=== PATIENT | male | born 1970 | race Caucasian/White ===

== ENCOUNTER → 2021-10-21 | Outpatient (CLI) | payer OTHER ==
[2021-10-21 08:20] LABS: BASO # 0.1 10^3/uL (0.0-0.2); BASO % 0.9 % (0.0-1.0); EOS # 0.3 10^3/uL (0.0-0.5); EOS % 3.8 % (0.0-3.0); HEMATOCRIT 41.5 % (42.0-52.0); HEMOGLOBIN 15.1 g/dl (13.5-17.5); LYMPH # 3.3 10^3/uL (1.5-5.0); LYMPH % 49.5 % (24.0-44.0); MEAN CORPUSCULAR HGB CONC 36.4 g/dl (32.0-36.5); MEAN CORPUSCULAR VOLUME 90.6 fl (80.0-96.0); MONO # 0.6 10^3/uL (0.0-0.8); MONO % 8.9 % (2.0-8.0); NEUTROPHILS # 2.4 10^3/uL (1.5-8.5); NEUTROPHILS % 36.3 % (36.0-66.0); PLATELET COUNT, AUTOMATED 242 10^3/uL (150-450); RED BLOOD COUNT 4.58 10^6/uL (4.30-6.10); WHITE BLOOD COUNT 6.6 10^3/uL (4.0-10.0)
[2021-10-21 09:42] LABS: ALBUMIN 3.9 GM/DL (3.2-5.2); BLOOD UREA NITROGEN 20 MG/DL (7-18); CALCIUM LEVEL 8.7 MG/DL (8.5-10.1); CARBON DIOXIDE LEVEL 24 MEQ/L (21-32); CHLORIDE LEVEL 109 MEQ/L (98-107); CHOLESTEROL LEVEL 142 MG/DL (<200); CHOLESTEROL RISK RATIO 3.021 (<5); CREATININE FOR GFR 1.21 MG/DL (0.70-1.30); GLOMERULAR FILTRATION RATE > 60.0 (>56); GLUCOSE, FASTING 83 MG/DL (70-100); HDL CHOLESTEROL 47 MG/DL (>40); LDL CHOLESTEROL 63 MG/DL (<100); NON-HDL-C 95 MG/DL; PHOSPHORUS LEVEL 3.3 MG/DL (2.5-4.9); SODIUM LEVEL 139 MEQ/L (136-145); TRIGLYCERIDES LEVEL 160 MG/DL (<150)
[2021-10-21 11:14] LABS: HEPATITIS B SURFACE ANTIGEN NEGATIVE (NEGATIVE)
[2021-10-21 11:40] LABS: HEPATITIS C VIRUS ABY INDEX 0.2 INDEX (<0.8)
[2021-10-21 11:41] LABS: HEPATITIS B CORE ANTIBODY IGM NEGATIVE (NEGATIVE)
[2021-10-22 18:10] LABS: PSA TOTAL 0.5 ng/mL (0.0-4.0)
== END ==
LOC: M LAB 07:38
PROVIDERS: ATTEND Physician Assistant
DX: Z02.2 Encounter for examination for admission to residential institution (principal); R06.02 Shortness of breath; I10 Essential (primary) hypertension; E78.2 Mixed hyperlipidemia; Z12.5 Encounter for screening for malignant neoplasm of prostate

== ENCOUNTER 2021-11-03 07:42 | Emergency (ER) | payer OTHER ==
[~2021-11-03] VITALS: Ht 182.9 cm; Wt 115.8 kg
[2021-11-03] MEDS ORDERED: KEPP10002 PO (08:00)
[2021-11-03] MEDS ORDERED: ELIQ5TAB PO (08:00)
[2021-11-03] MEDS ORDERED: PANT40TA29 PO (08:00)
[2021-11-03] MEDS ORDERED: ZONE25CA6 PO (08:00)
[2021-11-03] MEDS ORDERED: MELA10CA6 PO (08:00)
[2021-11-03] MEDS ORDERED: SIMV40TA20 PO (08:00)
[2021-11-03] MEDS ORDERED: BENA25CA4 PO (08:00)
[2021-11-03] MEDS ORDERED: IBUP200C25 PO (08:00)
[2021-11-03] MEDS ORDERED: ALBUTEROL 90 MCG/ACT 8GM HFA INHALER INH ONE (08:45)
[2021-11-03] MEDS ORDERED: ISOVUE-370 76% 100ML VIAL As Ordered ONE ×2 (09:18→09:19)
[2021-11-03] MEDS ORDERED: DOXY-443 PO (12:51)
[2021-11-03] MEDS ORDERED: ALBU8.5H INH (12:51)
[2021-11-03] MEDS ORDERED: ENOX40IN3 SC (12:51)
[2021-11-03 13:40] VITALS: BP 151/73
== END 2021-11-03 13:40 | disposition home or self-care (01) ==
LOC: M ED 07:42
DX: J18.9 Pneumonia, unspecified organism (principal); J12.3 Human metapneumovirus pneumonia; I26.99 Other pulmonary embolism without acute cor pulmonale; Z91.030 Bee allergy status; Z79.899 Other long term (current) drug therapy
CPT/HCPCS: 36415; 71275; 80047; 87798; 94640; 99284; Q9967

== ENCOUNTER → 2021-11-17 | Outpatient (CLI) | payer OTHER ==
[~2021-11-17] MED LIST: ALBU8.5H INH; BENA25CA4 PO; DOXY-443 PO; E-Z-GAS II EFFERVESCENT PACKET (SODIUM BICARB./CITRIC ACID/SIMETHICONE) As Ordered ONE; E-Z-HD 98% w/w 340GM SUSP BTL As Ordered ONE; E-Z-PAQUE 96% w/w SUSP 176GM BTL As Ordered ONE; ELIQ5TAB PO; ENOX40IN3 SC; IBUP200C25 PO; KEPP10002 PO; MELA10CA6 PO; PANT40TA29 PO; SIMV40TA20 PO; ZONE25CA6 PO
== END ==
LOC: M RAD 09:03
PROVIDERS: ATTEND Internal Medicine Gastroenterology
DX: K21.9 Gastro-esophageal reflux disease without esophagitis (principal); R06.00 Dyspnea, unspecified; R10.13 Epigastric pain

== ENCOUNTER → 2021-11-22 | Outpatient (CLI) | payer OTHER ==
[~2021-11-22] MED LIST changes: +COMBAER6 INH; -E-Z-GAS II EFFERVESCENT PACKET (SODIUM BICARB./CITRIC ACID/SIMETHICONE) As Ordered ONE; -E-Z-HD 98% w/w 340GM SUSP BTL As Ordered ONE; -E-Z-PAQUE 96% w/w SUSP 176GM BTL As Ordered ONE
== END ==
LOC: M LABSMTC 11:06
PROVIDERS: ATTEND Anesthesiology
DX: Z20.828 Contact with and (suspected) exposure to other viral communicable diseases (principal); Z11.59 Encounter for screening for other viral diseases

== ENCOUNTER → 2021-11-23 | Outpatient (CLI) | payer OTHER | LOC: M SLEEP 08:24 | PROVIDERS: ATTEND Psychiatry & Neurology Neurology | DX: G40.109 Localization-related (focal) (partial) symptomatic epilepsy and epileptic syndromes with simple partial seizures, not intractable, without status epilepticus (principal) ==

== ENCOUNTER 2021-11-26 12:06 | Day surgery (SDC) | payer OTHER ==
[~2021-11-26] VITALS: Ht 182.9 cm; Wt 113.4 kg
[~2021-11-26 12:06] MED LIST changes: +NS 1,000 ML IV ONE
[2021-11-26] MEDS ORDERED: propofoL 200 MG/20 ML VIAL As Ordered ONE (13:42)
[2021-11-26] MEDS ORDERED: LIDOCAINE 2% 100MG/5ML SDV (FOR ANES.) As Ordered ONE (13:42)
[2021-11-26] MEDS ORDERED: fentaNYL 100 MCG/2 ML INJECTION As Ordered ONE (13:43)
[2021-11-26 15:40] VITALS: BP 134/69
== END 2021-11-26 15:55 | disposition home or self-care (01) ==
LOC: M OPP 12:06
PROVIDERS: ATTEND Internal Medicine Gastroenterology
DX: K22.89 Other specified disease of esophagus (principal); R10.13 Epigastric pain; R14.2 Eructation; R06.02 Shortness of breath; Z79.899 Other long term (current) drug therapy; Z91.030 Bee allergy status; Z86.59 Personal history of other mental and behavioral disorders; Z86.69 Personal history of other diseases of the nervous system and sense organs; Z86.711 Personal history of pulmonary embolism; Z86.718 Personal history of other venous thrombosis and embolism; Z87.820 Personal history of traumatic brain injury
CPT/HCPCS: 43239; 88305; J3010

== ENCOUNTER 2021-12-18 22:11 | Emergency (ER) | payer OTHER ==
[~2021-12-18] VITALS: Ht 182.9 cm; Wt 113.6 kg
[~2021-12-18 22:11] MED LIST changes: -NS 1,000 ML IV ONE
[2021-12-18] MEDS ORDERED: ENOXAPARIN 100MG/1ML SYRINGE (J1650 PER 10MG) SC STA (23:28)
[2021-12-19 00:03] VITALS: BP 134/72
== END 2021-12-19 00:13 | disposition home or self-care (01) ==
LOC: M ED 22:11
DX: I26.99 Other pulmonary embolism without acute cor pulmonale (principal); G40.909 Epilepsy, unspecified, not intractable, without status epilepticus; Z86.711 Personal history of pulmonary embolism; Z86.73 Personal history of transient ischemic attack (TIA), and cerebral infarction without residual deficits; Z87.820 Personal history of traumatic brain injury; Z88.8 Allergy status to other drugs, medicaments and biological substances; Z91.030 Bee allergy status
CPT/HCPCS: 96372; 99283; J1650

== ENCOUNTER → 2021-12-22 | Outpatient (CLI) | payer OTHER | LOC: M RAD 10:15 | PROVIDERS: ATTEND Internal Medicine Gastroenterology | DX: R06.00 Dyspnea, unspecified (principal); K31.84 Gastroparesis | CPT/HCPCS: 78264; A9541 ==

== ENCOUNTER 2022-08-22 02:32 | Emergency (ER) | payer OTHER ==
[2022-08-22 03:00] LABS: BASO # 0.1 10^3/uL (0.0-0.2); BASO % 0.6 % (0.0-1.0); EOS # 0.2 10^3/uL (0.0-0.5); EOS % 2.1 % (0.0-3.0); HEMATOCRIT 41.3 % (42.0-52.0); LYMPH # 1.2 10^3/uL (1.5-5.0); LYMPH % 12.6 % (24.0-44.0); MEAN CORPUSCULAR HEMOGLOBIN 32.8 pg (27.0-33.0); MEAN CORPUSCULAR HGB CONC 36.3 g/dl (32.0-36.5); MEAN CORPUSCULAR VOLUME 90.2 fl (80.0-96.0); MONO # 0.9 10^3/uL (0.0-0.8); MONO % 9.7 % (2.0-8.0); NEUTROPHILS # 7.1 10^3/uL (1.5-8.5); NEUTROPHILS % 74.4 % (36.0-66.0); PLATELET COUNT, AUTOMATED 233 10^3/uL (150-450); RED BLOOD COUNT 4.58 10^6/uL (4.30-6.10); WHITE BLOOD COUNT 9.5 10^3/uL (4.0-10.0)
[2022-08-22] MEDS ORDERED: ACETAMINOPHEN 500 MG TAB PO ONE (03:05)
[2022-08-22 03:11] LABS: INR 0.92; PROTHROMBIN TIME 12.6 SECONDS (12.5-14.5)
[2022-08-22 03:27] LABS: ALKALINE PHOSPHATASE 92 U/L (46-116); ALT/SGPT 50 U/L (7.0-40); AST/SGOT 33 U/L (<34); BILIRUBIN,DIRECT 0.1 MG/DL (<0.4); BILIRUBIN,TOTAL 0.4 MG/DL (0.3-1.2); BLOOD UREA NITROGEN 15 MG/DL (9-23); CALCIUM LEVEL 9.2 MG/DL (8.5-10.1); CARBON DIOXIDE LEVEL 19 MMOL/L (20-31); CHLORIDE LEVEL 107 MMOL/L (98-107); CK-MB VALUE MASS < 1.0 NG/ML (<3.6); CPK CREATINE PHOSPHOKINASE 128 U/L (46-171); CREATININE FOR GFR 1.25 MG/DL (0.70-1.30); GLOMERULAR FILTRATION RATE > 60.0 (>56); GLUCOSE, FASTING 109 MG/DL (60-100); MB/CK RELATIVE INDEX 0.78 (< OR =4); POTASSIUM SERUM 4.1 MMOL/L (3.5-5.1); SODIUM LEVEL 138 MMOL/L (136-145); TOTAL PROTEIN 7.3 G/DL (5.7-8.2)
[2022-08-22 03:30] LABS: THYROID STIMULATING HORMONE 1.896 uIU/ML (0.55-4.78)
[2022-08-22] MEDS ORDERED: ISOVUE-370 76% 100ML VIAL As Ordered ONE (03:41)
[2022-08-22] MEDS ORDERED: PRED20TA PO (05:54)
[2022-08-22] MEDS ORDERED: BENZ200C70 PO (05:54)
[2022-08-22] MEDS ORDERED: predniSONE 20 MG TAB PO ONE (05:55)
[2022-08-22] MEDS ORDERED: BENZONATATE 100MG CAPSULE PO ONE (05:55)
[2022-08-22 06:06] VITALS: BP 150/88
== END 2022-08-22 06:12 | disposition home or self-care (01) ==
LOC: M ED 02:32 → EDBD 02:32 → M ED 06:12
DX: U07.1 COVID-19 (principal); Z91.030 Bee allergy status; Z88.8 Allergy status to other drugs, medicaments and biological substances
CPT/HCPCS: 36415; 71045; 71275; 80048; 80076; 82550; 82553; 83605; 83880; 84443; 85025; 85610; 87040; 87486; 87581; 87633; 87798; 93005; 93041; 93971; 94760; 99285; J7512

== ENCOUNTER 2023-05-28 15:46 | Inpatient (IN) | payer OTHER ==
[~2023-05-28] VITALS: Ht 182.9 cm; Wt 108.0 kg
[~2023-05-28 15:46] MED LIST changes: +BENZ200C70 PO; +PRED20TA PO
[2023-05-28 16:52] LABS: ERYTHROCYTE SEDIMENTATION RATE 30 mm/hr (0-20)
[2023-05-28] MEDS ORDERED: HYDROMORPHONE HCL 0.5 MG/ 0.5 ML SYRINGE IV PRN ×2 (16:55→18:35)
[2023-05-28] MEDS ORDERED: NS 1,000 ML IV ONE (16:55)
[2023-05-28 17:07] LABS: ALKALINE PHOSPHATASE 98 U/L (46-116); ALT/SGPT 41 U/L (7.0-40); AST/SGOT 50 U/L (<34); BILIRUBIN,DIRECT 0.3 MG/DL (<0.4); BILIRUBIN,TOTAL 0.7 MG/DL (0.3-1.2); BLOOD UREA NITROGEN 14 MG/DL (9-23); CALCIUM LEVEL 8.4 MG/DL (8.5-10.1); CARBON DIOXIDE LEVEL 22 MMOL/L (20-31); CHLORIDE LEVEL 103 MMOL/L (98-107); CREATININE FOR GFR 0.97 MG/DL (0.70-1.30); GLOMERULAR FILTRATION RATE > 60.0 (>56); GLUCOSE, FASTING 127 MG/DL (60-100); POTASSIUM SERUM 3.6 MMOL/L (3.5-5.1); SODIUM LEVEL 137 MMOL/L (136-145); TOTAL PROTEIN 6.5 G/DL (5.7-8.2)
[2023-05-28 17:12] LABS: RSV AMPLIFICATION NEGATIVE (NEGATIVE)
[2023-05-28 17:16] LABS: INR 1.19; PROTHROMBIN TIME 14.8 SECONDS (12.5-14.5)
[2023-05-28 17:17] LABS: BASO # 0.1 10^3/uL (0.0-0.2); BASO % 0.5 % (0.0-1.0); EOS # 0.4 10^3/uL (0.0-0.5); EOS % 3.1 % (0.0-3.0); HEMATOCRIT 38.1 % (42.0-52.0); HEMOGLOBIN 14.1 g/dl (13.5-17.5); LYMPH # 1.6 10^3/uL (1.5-5.0); LYMPH % 14.2 % (24.0-44.0); MEAN CORPUSCULAR HEMOGLOBIN 32.6 pg (27.0-33.0); MEAN CORPUSCULAR VOLUME 88.2 fl (80.0-96.0); MONO # 1.1 10^3/uL (0.0-0.8); MONO % 9.7 % (2.0-8.0); NEUTROPHILS # 8.2 10^3/uL (1.5-8.5); NEUTROPHILS % 71.8 % (36.0-66.0); PARTIAL THROMBOPLASTIN TIME 31.3 SECONDS (24.8-34.2); PLATELET COUNT, AUTOMATED 149 10^3/uL (150-450); RED BLOOD COUNT 4.32 10^6/uL (4.30-6.10); WHITE BLOOD COUNT 11.4 10^3/uL (4.0-10.0)
[2023-05-28] MEDS ORDERED: HEPARIN DRIP 25,000 UNITS in IV 1 EA IV SCH (18:15)
[2023-05-28] MEDS ORDERED: HEPARIN SOD (PORCINE) 5000UNITS/ML 1ML VIAL/SYRINGE IV ONE (18:15)
[2023-05-28] MEDS ORDERED: MOM 30ML SUSPENSION UDC PO PRN (18:35)
[2023-05-28] MEDS ORDERED: HEPARIN SOD (PORCINE) 5000UNITS/ML 1ML VIAL/SYRINGE IV PRN (18:35)
[2023-05-28] MEDS ORDERED: MAALOX 30 ML SUSP *UDC PO PRN (18:35)
[2023-05-28] MEDS ORDERED: ZONI100C67 PO (18:57)
[2023-05-28] MEDS ORDERED: ENOX100I3 SC (18:57)
[2023-05-28] MEDS ORDERED: HOME MED LIST COMPLETE! XX SCH (19:00)
[2023-05-28 19:38] LABS: HEPATITIS B CORE ANTIBODY IGM NEGATIVE (NEGATIVE); HEPATITIS C VIRUS ABY INDEX 0.06 INDEX (<0.8)
[2023-05-28 20:00] VITALS: O2SAT 95
[2023-05-28] MEDS: HYDROMORPHONE HCL 0.5 MG/ 0.5 ML SYRINGE IV PRN ×2 (20:02→23:12)
[2023-05-28 20:38] VITALS: BP 143/80; TEMP 98.9; O2SAT 97
[2023-05-28] MEDS: DOCUSATE SODIUM 100MG CAPSULE PO SCH (20:55)
[2023-05-28] MEDS: SIMVASTATIN 40 MG TAB PO SCH (20:59)
[2023-05-28 21:00] VITALS: O2SAT 93
[2023-05-28] MEDS: PANTOPRAZOLE 40MG TAB (PROTONIX) PO SCH (21:08)
[2023-05-28 21:56] LABS: HEMATOCRIT 37.9 % (42.0-52.0); HEMOGLOBIN 13.8 g/dl (13.5-17.5); MEAN CORPUSCULAR HEMOGLOBIN 32.3 pg (27.0-33.0); MEAN CORPUSCULAR HGB CONC 36.4 g/dl (32.0-36.5); MEAN CORPUSCULAR VOLUME 88.8 fl (80.0-96.0); PLATELET COUNT, AUTOMATED 149 10^3/uL (150-450); RED BLOOD COUNT 4.27 10^6/uL (4.30-6.10)
[2023-05-28 22:00] VITALS: O2SAT 94
[2023-05-28 23:00] VITALS: BP 144/79; TEMP 98.2; O2SAT 93; O2SAT 98
[2023-05-29] VITALS (15 sets, daily range): BP systolic 112–157; BP diastolic 58–111; TEMP 98.2–99; O2SAT 91–97
[2023-05-29] MEDS ORDERED: ZONISAMIDE 100 MG CAP (ZONEGRAN) PO ONE
[2023-05-29] MEDS: HYDROMORPHONE HCL 0.5 MG/ 0.5 ML SYRINGE IV PRN ×7 (02:00→23:55)
[2023-05-29 06:16] LABS: BASO # 0.1 10^3/uL (0.0-0.2); BASO % 0.5 % (0.0-1.0); EOS # 0.4 10^3/uL (0.0-0.5); EOS % 3.8 % (0.0-3.0); HEMATOCRIT 35.9 % (42.0-52.0); HEMOGLOBIN 13.1 g/dl (13.5-17.5); LYMPH # 3.2 10^3/uL (1.5-5.0); MEAN CORPUSCULAR HEMOGLOBIN 32.5 pg (27.0-33.0); MEAN CORPUSCULAR HGB CONC 36.5 g/dl (32.0-36.5); MEAN CORPUSCULAR VOLUME 89.1 fl (80.0-96.0); MONO # 1.2 10^3/uL (0.0-0.8); MONO % 10.6 % (2.0-8.0); NEUTROPHILS # 6.4 10^3/uL (1.5-8.5); NEUTROPHILS % 56.4 % (36.0-66.0); PLATELET COUNT, AUTOMATED 154 10^3/uL (150-450); RED BLOOD COUNT 4.03 10^6/uL (4.30-6.10); WHITE BLOOD COUNT 11.3 10^3/uL (4.0-10.0)
[2023-05-29 07:14] LABS: ALBUMIN 2.8 G/DL (3.2-5.2); ALKALINE PHOSPHATASE 87 U/L (46-116); ALT/SGPT 29 U/L (7.0-40); AST/SGOT 33 U/L (<34); BILIRUBIN,DIRECT 0.3 MG/DL (<0.4); BILIRUBIN,TOTAL 0.7 MG/DL (0.3-1.2); BLOOD UREA NITROGEN 11 MG/DL (9-23); CALCIUM LEVEL 8.5 MG/DL (8.5-10.1); CARBON DIOXIDE LEVEL 24 MMOL/L (20-31); CHLORIDE LEVEL 102 MMOL/L (98-107); CREATININE FOR GFR 0.93 MG/DL (0.70-1.30); GLOMERULAR FILTRATION RATE > 60.0 (>56); GLUCOSE, FASTING 103 MG/DL (60-100); MAGNESIUM LEVEL 1.9 MG/DL (1.8-2.4); POTASSIUM SERUM 3.6 MMOL/L (3.5-5.1); SODIUM LEVEL 134 MMOL/L (136-145); TOTAL PROTEIN 5.8 G/DL (5.7-8.2)
[2023-05-29] MEDS: DOCUSATE SODIUM 100MG CAPSULE PO SCH ×2 (08:19→20:11)
[2023-05-29] MEDS: ACETAMINOPHEN TAB 650MG DOSE (2X325MG) PO PRN ×2 (08:19→20:20)
[2023-05-29] MEDS: PANTOPRAZOLE 40MG TAB (PROTONIX) PO SCH (08:19)
[2023-05-29] MEDS ORDERED: ZONISAMIDE 25MG CAP (ZONEGRAN) PO SCH (09:00)
[2023-05-29] MEDS: HEPARIN DRIP 25,000 UNITS in IV 1 EA IV SCH ×2 (10:33→23:59)
[2023-05-29] MEDS: SIMVASTATIN 40 MG TAB PO SCH (20:10)
[2023-05-29] MEDS: ZONISAMIDE 100 MG CAP (ZONEGRAN) PO SCH (21:05)
[2023-05-30 04:23] VITALS: BP 120/63; TEMP 97.8; O2SAT 94
[2023-05-30 07:12] LABS: BASO # 0.1 10^3/uL (0.0-0.2); BASO % 0.7 % (0.0-1.0); EOS # 0.5 10^3/uL (0.0-0.5); HEMATOCRIT 36.7 % (42.0-52.0); HEMOGLOBIN 13.4 g/dl (13.5-17.5); LYMPH % 22.1 % (24.0-44.0); MEAN CORPUSCULAR HEMOGLOBIN 32.3 pg (27.0-33.0); MEAN CORPUSCULAR HGB CONC 36.5 g/dl (32.0-36.5); MEAN CORPUSCULAR VOLUME 88.4 fl (80.0-96.0); MONO # 0.7 10^3/uL (0.0-0.8); NEUTROPHILS # 5.6 10^3/uL (1.5-8.5); NEUTROPHILS % 62.1 % (36.0-66.0); PLATELET COUNT, AUTOMATED 193 10^3/uL (150-450); RED BLOOD COUNT 4.15 10^6/uL (4.30-6.10)
[2023-05-30 07:44] LABS: ALBUMIN 2.6 G/DL (3.2-5.2); BILIRUBIN,DIRECT 0.3 MG/DL (<0.4); BILIRUBIN,TOTAL 0.6 MG/DL (0.3-1.2); BLOOD UREA NITROGEN 13 MG/DL (9-23); CALCIUM LEVEL 8.4 MG/DL (8.5-10.1); CARBON DIOXIDE LEVEL 23 MMOL/L (20-31); CHLORIDE LEVEL 107 MMOL/L (98-107); CREATININE FOR GFR 0.93 MG/DL (0.70-1.30); GLOMERULAR FILTRATION RATE > 60.0 (>56); GLUCOSE, FASTING 104 MG/DL (60-100); MAGNESIUM LEVEL 2.1 MG/DL (1.8-2.4); POTASSIUM SERUM 4.1 MMOL/L (3.5-5.1); SODIUM LEVEL 138 MMOL/L (136-145); TOTAL PROTEIN 5.8 G/DL (5.7-8.2)
[2023-05-30 08:00] VITALS: BP 121/69; TEMP 98.7; O2SAT 97
[2023-05-30] MEDS: HYDROMORPHONE HCL 0.5 MG/ 0.5 ML SYRINGE IV PRN (08:02)
[2023-05-30] MEDS: DOCUSATE SODIUM 100MG CAPSULE PO SCH ×2 (09:00→20:41)
[2023-05-30] MEDS: PANTOPRAZOLE 40MG TAB (PROTONIX) PO SCH (10:16)
[2023-05-30] MEDS: ENOXAPARIN 100MG/1ML SYRINGE (J1650 PER 10MG) SC SCH ×2 (10:17→20:41)
[2023-05-30] MEDS: PERCOCET 5MG/325MG TAB PO PRN ×4 (11:56→23:04)
[2023-05-30 12:00] VITALS: BP_SYST 104; BP_SYST 121; BP_DIAS 69; TEMP 98; TEMP 98.7; O2SAT 94; O2SAT 97
[2023-05-30] MEDS ORDERED: INFLUENZA QUADRIVALENT PF VACCINE 0.5ML SYRINGE IM.IMMUN ONE (13:00)
[2023-05-30 16:00] VITALS: BP 106/61; TEMP 98.1; O2SAT 98
[2023-05-30 20:00] VITALS: BP 114/71; TEMP 97.2; O2SAT 97
[2023-05-30] MEDS: ZONISAMIDE 100 MG CAP (ZONEGRAN) PO SCH (20:41)
[2023-05-30] MEDS: SIMVASTATIN 40 MG TAB PO SCH (20:41)
[2023-05-31 00:05] VITALS: BP 112/57; TEMP 98.8; O2SAT 98
[2023-05-31] MEDS: PERCOCET 5MG/325MG TAB PO PRN (03:25)
[2023-05-31 04:05] VITALS: BP 121/74; TEMP 97.6; O2SAT 97
[2023-05-31 05:43] LABS: BASO # 0.1 10^3/uL (0.0-0.2); BASO % 0.9 % (0.0-1.0); EOS # 0.5 10^3/uL (0.0-0.5); EOS % 7.6 % (0.0-3.0); HEMATOCRIT 35.7 % (42.0-52.0); HEMOGLOBIN 12.8 g/dl (13.5-17.5); LYMPH # 1.7 10^3/uL (1.5-5.0); LYMPH % 25.8 % (24.0-44.0); MEAN CORPUSCULAR HEMOGLOBIN 32.2 pg (27.0-33.0); MEAN CORPUSCULAR HGB CONC 35.9 g/dl (32.0-36.5); MEAN CORPUSCULAR VOLUME 89.7 fl (80.0-96.0); MONO # 0.5 10^3/uL (0.0-0.8); MONO % 7.4 % (2.0-8.0); NEUTROPHILS # 3.9 10^3/uL (1.5-8.5); NEUTROPHILS % 57.1 % (36.0-66.0); PLATELET COUNT, AUTOMATED 234 10^3/uL (150-450); RED BLOOD COUNT 3.98 10^6/uL (4.30-6.10); WHITE BLOOD COUNT 6.8 10^3/uL (4.0-10.0)
[2023-05-31 05:52] LABS: ALBUMIN 2.6 G/DL (3.2-5.2); ALKALINE PHOSPHATASE 90 U/L (46-116); ALT/SGPT 28 U/L (7.0-40); AST/SGOT 24 U/L (<34); BILIRUBIN,DIRECT 0.2 MG/DL (<0.4); BILIRUBIN,TOTAL 0.3 MG/DL (0.3-1.2); BLOOD UREA NITROGEN 11 MG/DL (9-23); CARBON DIOXIDE LEVEL 22 MMOL/L (20-31); CHLORIDE LEVEL 105 MMOL/L (98-107); CREATININE FOR GFR 0.95 MG/DL (0.70-1.30); GLOMERULAR FILTRATION RATE > 60.0 (>56); GLUCOSE, FASTING 103 MG/DL (60-100); MAGNESIUM LEVEL 2.2 MG/DL (1.8-2.4); POTASSIUM SERUM 3.9 MMOL/L (3.5-5.1); SODIUM LEVEL 136 MMOL/L (136-145); TOTAL PROTEIN 5.9 G/DL (5.7-8.2)
[2023-05-31 07:00] VITALS: O2SAT 98
[2023-05-31 07:49] VITALS: BP 119/69; TEMP 96.6; O2SAT 98
[2023-05-31 08:00] VITALS: O2SAT 98
[2023-05-31] MEDS: ENOXAPARIN 100MG/1ML SYRINGE (J1650 PER 10MG) SC SCH (08:40)
[2023-05-31] MEDS: DOCUSATE SODIUM 100MG CAPSULE PO SCH (08:40)
[2023-05-31] MEDS: PANTOPRAZOLE 40MG TAB (PROTONIX) PO SCH (08:40)
[2023-05-31] MEDS ORDERED: HYDR-4517 PO (08:55)
[2023-05-31] MEDS ORDERED: ENOX100I3 SC (08:55)
== END 2023-05-31 09:58 | disposition home or self-care (01) | DRG 197 ==
LOC: M ED 15:46 → M ED INP 18:32 → ENRESERV 19:41 → M PCU 20:40
PROVIDERS: ADMIT Internal Medicine; ATTEND Internal Medicine
DX: I82.412 Acute embolism and thrombosis of left femoral vein (principal); D68.59 Other primary thrombophilia; D72.829 Elevated white blood cell count, unspecified; E78.00 Pure hypercholesterolemia, unspecified; G40.909 Epilepsy, unspecified, not intractable, without status epilepticus; K21.9 Gastro-esophageal reflux disease without esophagitis; G43.909 Migraine, unspecified, not intractable, without status migrainosus; R74.01 Elevation of levels of liver transaminase levels; Z79.01 Long term (current) use of anticoagulants; Z87.820 Personal history of traumatic brain injury; Z91.148 Patient's other noncompliance with medication regimen for other reason; F14.10 Cocaine abuse, uncomplicated; Z91.030 Bee allergy status; Z88.8 Allergy status to other drugs, medicaments and biological substances; Z79.899 Other long term (current) drug therapy